=== PATIENT | male | born 1955 | race Caucasian/White ===

== ENCOUNTER 2018-09-26 14:39 | Outpatient (CLI) | payer OTHER, SELFPAY ==
[2018-09-26 15:26] LABS: HCT 44.9 % (40.0-50.0); HGB 15.4 g/dL (13.5-17.5); Mean Corp. HGB Concentration 34.3 g/dL (32.0-36.0); Mean Corpuscular Hemoglobin 32.8 pg (27.0-33.0); Mean Corpuscular Volume 95.7 fL (80-95); Mean Platelet Volume 9.1 fL (8.0-11.0); Platelet Count 283 x1000/uL (130-400); RBC 4.69 m/cumm (4.50-6.00); RBC Distribution Width 12.6 % (11.8-14.1); White Blood Cell Count 7.04 k/cumm (4.4-10.8)
[2018-09-26 16:00] LABS: Albumin 3.8 g/dL (3.4-5.0); Alkaline Phosphatase 84 U/L (46-116); Anion Gap 6.4 mmol/L (3-11); BUN 19 mg/dL (7-18); Bilirubin, Total 0.4 mg/dL (0.2-1.0); CO2 31.6 mmol/L (21.0-32.0); CREATININE 0.91 mg/dL (0.70-1.30); Calcium 8.4 mg/dL (8.5-10.1); Chloride 102 mmol/L (98-107); FREE T4 1.72 ng/dL (0.76-1.46); Glucose 123 mg/dL (70-100); Potassium 4.4 mmol/L (3.5-5.1); Sodium 140 mmol/L (136-145); TSH 4.39 uIU/mL (0.358-3.74); Total Protein 6.8 g/dL (6.4-8.2)
[2018-09-26 16:12] LABS: AST 26 U/L (15-37)
[2018-09-26 18:35] LABS: ALT 31 U/L (12-78)
== END 2018-09-26 14:59 ==
PROVIDERS: PCP Family Medicine; Visit Provider Family Medicine
DX: L29.9 Pruritus, unspecified (principal); E03.9 Hypothyroidism, unspecified
CPT/HCPCS: 36415; 80053; 85027; 84439; 84443